=== PATIENT | female | born 1995 | race Caucasian/White ===

== ENCOUNTER 2019-08-20 19:14 | Observation (INO) | payer OTHER, SELFPAY ==
[2019-08-20] VITALS (7 sets, daily range): BP systolic 97–121; BP diastolic 50–76; PULSE 73–110; RESP 16–18; TEMP 36.5–37.7; O2SAT 97–100; BMI 31.6; BMI 29.9
--- NOTE | 2019-08-20 19:32 | ED.RN ---
PT REPORTS THAT SHE WAS BUCKED OFF HER HORSE THIS EVENING. PT DENIES LOC. REPORTS WEARING A HELMET. C/O NECK TENDERNESS AND BITING LIP. PT WITH ABRASION TO LEFT SIDE OF LIP AND INTO THE CHEEK.
--- NOTE | 2019-08-20 19:35 | CT_ITS ---
STUDY: CT FACIAL BONES WITHOUT CONTRAST REASON FOR EXAM: Female, 23 years old. Follow-up of torsion injured left side of mouth RADIATION DOSAGE (If Supplied By Facility): CTDIvol = ( 29.38 ) mGy, DLP = ( 554.80 ) mGycm TECHNIQUE: The patient was scanned in a multi detector CT scanner. Sagittal and coronal images were reconstructed. Individualized dose optimization techniques were used for this CT. COMPARISON: None. FINDINGS: Soft tissue calcification along the mentum of the mandible. Normal orbital su and orbital contents. Normal nasal bones and anterior nasal spine. Normal facial bones. There is no demonstrated fracture. Normal visualized paranasal sinuses. CT/Sinus/Facial Bone IMPRESSION: No fracture Electronically Signed: Fredy Tay MD at 20:19 EDT , Service support ,
--- NOTE | 2019-08-20 19:50 | RAD_ITS ---
STUDY: X-RAY - CERVICAL SPINE REASON FOR EXAM: Female, 23 years old. Fell from a horse and injured neck TECHNIQUE: 4 view(s) of the cervical spine were obtained. COMPARISON: None FINDINGS: Normal anterior atlantoaxial articulation. Normal odontoid process. Normal cervical lordosis. Normal vertebral bodies and endplates. Normal disc space heights. Normal visualized intervertebral neuroforamina. The soft tissue structures are unremarkable. RAD/Cerv Spine 2 or 3 Views IMPRESSION: Normal x-ray examination of the visualized cervical spine. Electronically Signed: Fredy Tay MD at 20:25 EDT , Service support ,
[2019-08-20 20:33] LABS: Absolute Lymphocyte Count 1.29 X10^3/uL (0.83-4.51); Absolute Neutrophil Count 15.7 X10^3/uL (2.0-7.7); Basophil# 0.07 X10^3/uL; Basophil% 0.4 % (0-1); Eosinophil# 0.16 X10^3/uL; Eosinophils% 0.9 % (0-5); Hematocrit 42.3 % (37-47); Hemoglobin 14.5 g/dL (12.0-15.0); Lymphocyte # 1.29 X10^3/ul (4.0); Lymphocyte % 7.1 % (19-41); Mean Corp Hgb Conc 34.3 g/dL (32-36); Mean Corpuscular Hgb 30.4 pg (27.0-32.0); Mean Corpuscular Volume 88.7 fL (81-99); Mean Platelet Vol. 9.1 fl (6.2-12.0); Monocyte# 0.86 X10^3/uL; Monocyte% 4.7 % (0-10); NRBC Flagged by Analyzer 0 % (0-5); Neutrophil # 15.69 X10^3/uL (2.7-7.7); Platelet Count 328 K/mm3 (150-450); RBC Distribution Width CV 11.5 % (11.6-14.6); RBC Distribution Width SD 36.9 fl (35.1-43.9); Red Blood Count 4.77 M/mm3 (4.2-5.4); White Blood Count 18.2 K/mm3 (4.4-11.0)
[2019-08-20 20:42] LABS: Anion Gap 5 (5-15); BUN 17 mg/dL (7-18); BUN/Creat Ratio 21.1 RATIO (10-20); Chloride 110 mmol/L (98-107); EST Glomerular Filtration Rate 95 mL/min (>60); Est Glom Filt Rate - Afr Amer 115 mL/min (>60); Glucose 90 mg/dL (74-106); Potassium 3.9 mmol/L (3.5-5.1); Sodium Level 139 mmol/L (136-145)
--- NOTE | 2019-08-20 20:49 | ED.DCSUM_ITS ---
- ER Visit Summary Date of Service: 08/20/19 Chief Complaint: [Facial injury] History of Present Illness: The patient is a 23 F [presents to the emergency department with complaint of injury to her face after being thrown off of a horse this evening. Patient states that her horse try to jump and then started bucking and bucked her off. Patient was wearing a helmet but her face hit the ground. No loss of consciousness. She complains of some mild pain in her neck. Patient complains of a tear to the inner aspect of her lower lip. Denies any chest pain or abdominal pain. She denies any numbness or tingling in the extremities. Denies any weakness in extremities.] Physical Examination: [HEENT-PERRLA, EOMI. Cranial nerves II through XII grossly intact. TMs clear. Mucous membranes moist. No adenopathy. Patient has a superficial abrasion to the left corner of the mouth and cheek. On pulling back the lower lip it is noted that patient has a degloving type injury of the lip mucosa along the aspect of the anterior mandible and there is large amount of particulate dirt and debris. Patient has some mild tenderness over the anterior mandible. She has some mild tenderness diffusely about the cervical spine. No bony step-offs noted. Good range of motion. Cardiovascular-regular rate and rhythm without murmur or ectopy Lungs-clear to auscultation, chest wall stable without crepitus or subcu emphysema Abdomen-normoactive bowel sounds, soft, nontender, no rebound or rigidity, no peritoneal signs. Extremities-intact ?4, normal range of motion, normal pulses, atraumatic] Test Results: [CBC with differential showed a white blood cell count of 18.2, hemoglobin 14, hematocrit 42, placed 328. Chemistries unremarkable. CT of the facial bones showed no fractures. X-rays of the C-spine showed no fractures.] Emergency Department Course and Treatment: [She was given Ancef 1 g IV. Case was discussed with oral maxillofacial surgeon Dr. Brush who will see patient and take 2 OR irrigation and repair of the wound.] Treatment Plan: [Admit] Disposition: [Admit] Impression: [Contusion face Contaminated intraoral wound Cervical strain] This note was generated with [employer] software. It may contain incorrect words, spelling, and punctuation that were not noted in review of the chart prior to signing ED Disposition - Plan for ED Patient: Referrals: COURTNEY DUNCAN [Other]
--- NOTE | 2019-08-20 21:29 | ED.RN ---
REPORT TO CANDELARIA ALEMAN IN OR. PT SKIN P/W/D, RESP EVEN AND UNLABORED, PT A&O X 3, NO DISTRESS NOTED.
--- NOTE | 2019-08-20 21:53 | HP.PCM_ITS ---
History of Present Illness Date of Admission: 08/20/19 Chief Complaint: Fell off a horse The patient is a 23 year old F with no past medical history presents from the [facility] she fell during a horse riding class. She landed on her face and appears to have a degloving injury to her internal oral mucosa. She denies any loss of consciousness, fever, chills, chest pain, numbness or tingling in the extremities. She was seen in the ER with a elevated white count which is likely reactive to the trauma. Plan is to go to the OR with OMFS for repair. Past Medical History Allergies No Known Allergies Allergy (Verified 08/20/19 19:18) Home Medications: Ambulatory Orders Medication Instructions Recorded NK 12/09/17 Surgical History: no surgical history Smoking Status: Never smoker Alcohol: None Drugs: None - *Family History Maternal History Items: No pertinent history Paternal History Items: No pertinent history Review of Systems Constitutional: Denies: Chills, Fever, Weight Change HEENT: Reports: - - Trauma to her lower lip. Denies: Head Aches, Sinus Congestion, Sinus Drainage Cardiovascular: Denies: Chest Pain, Palpitations Respiratory: Denies: Cough, Shortness of breath at rest, Sputum production Gastrointestinal: Denies: Abdominal Pain, Nausea, Vomiting Genitourinary: Denies: Dysuria Musculoskeletal: Denies: Joint Pain, Joint Tenderness Skin: Denies: Rash, Wounds Neurological: Denies: Numbness, Tingling, Focal weakness Psychiatric: Denies: Anxiety, Depression Hematologic/ Lymphatic: Denies: Easy Bruising, Easy Bleeding VTE Information - Inpt Only VTE Present on Admission: No - Physical Exam General: Alert, Oriented x3, Cooperative, No apparent distress HEENT: PERRLA, EOMI, Normocephalic Oral: - - Degloving injury to the internal lower mucosa of her lower lip Neck: Supple, No JVD Lungs: Clear to auscultation, Normal air movement, No rhonchi, No wheeze, No rales Cardiovascular: Regular rate, Regular Rhythm, Normal S1, Normal S2, No murmurs Abdomen: Soft, Non Tender, Non-Distended, No Hepato-splenomegaly Extremities: No edema, Capillary Refill Less than 3 Seconds Skin: No rashes, No breakdown Neurological: Neuro grossly intact, Sensory exam intact to light touch and pain Psych/Mental Status: Normal Affect, Appropriate Vital Signs Temp Pulse Resp BP Pulse Ox 99.2 F H 85 16 121/74 H 99 08/20/19 21:14 08/20/19 21:14 08/20/19 21:14 08/20/19 21:14 08/20/19 21:14 Oxygen Delivery Method Room Air Weight: 190 lb 0.615 oz Body Mass Index (BMI) 31.6 Laboratory Tests Past 24 Hrs 08/20/19 08/20/19 08/20/19 20:15 20:15 20:15 WBC 18.2 H RBC 4.77 Hgb 14.5 Hct 42.3 MCV 88.7 MCH 30.4 MCHC 34.3 RDW Std Deviation 36.9 RDW Coeff of Ruddy 11.5 L Plt Count 328 MPV 9.1 Immature Gran % (Auto) 0.900 Neut % (Auto) 86.0 H Lymph % (Auto) 7.1 L [place] % (Auto) 4.7 Eos % (Auto) 0.9 Baso % (Auto) 0.4 Absolute Neuts (auto) 15.7 H Absolute Lymphs (auto) 1.29 Nucleated RBC % 0 Sodium 139 Potassium 3.9 Chloride 110 H Carbon Dioxide 24.0 Anion Gap 5 BUN 17 Creatinine 0.80 Estim Creat Clear Calc 100.10 Est GFR (MDRD) Af Amer 115 Est GFR (MDRD) Non-Af 95 BUN/Creatinine Ratio 21.1 H Glucose 90 Calcium 9.0 Serum , Qual Pending Assessment/Plan 1. Facial trauma with oral mucosal degloving injury to the lower lip -Pain meds per OMFS -She is n.p.o. currently and will have a soft diet after surgery -give a dose 600 mg IV clindamycin x1 prior to surgery -Plan will be for discharge home tomorrow DVT: Ambulation Code Visit OBSV E&M: 60012 Initial observation care L2
[2019-08-20 21:55] LABS: Internal QC Validated? YES +Cl - CLEAR BKGD; Pregnancy, Serum, hCG Quali. NEGATIVE Negative
[2019-08-20] MEDS: 0.9% Normal Saline 1,000 ML 100 ML IV ×2 (22:00→23:59)
[2019-08-20] MEDS: Bupivacaine Mpf 0.5% 30 ML VIAL (22:45)
--- NOTE | 2019-08-20 23:25 | OP.PCM_ITS ---
Problem List (1) Laceration of lip, complicated Status: Acute Report of Operation Date of Procedure: 08/20/19 Pre-Operative Diagnosis: Severe Lip laceration Post-Operative Diagnosis: Same. Mental Nerve injury left. Surgery/Procedure Performed:: Debridement exploration , nerve approximation and repair laceration. Description of Surgical Findings:: Avulsive type degloving injury lower lip chin and mandible with nerve transection left mental nerve. Type of Anesthesia:: General Specimen's removed: none Drains: none Estimated Blood Loss (mL): minimal Description of Procedure: Patient examined in ER. Very large degloving injury lower lip and mandible with partial anesthesia left chin. Patient taken to OR for exploration debridement and repair. After anesthesia induced and intubated the patient was prepped and draped in the usual fashion for oral surgical care. The facial wounds (abrasions) were debrided and irrigated. The oral side of things consisted of a very large extending from first molar on the left and carried around to the right side a complete degloving in both a subperiosteal as well as supra- periosteal fashion. It was also noted the left mental nerve was transected. After approximately 300 cc of irrigation and scrubbing the foreign bodies which consisted of gravel particles were removed as best as I could determine. The left mental nerve proximal and distal stumps were re-approximated with 6-0 chromic suture. The mentalis muscle was then re-approximated with 3-0 chromic suture. At this time the remaining laceration was closed with a combination of running and interupted suturing. At this time the oropharyngeal and hypo-pharyngeal areas suction free of all debri and liquids. The patient was awakened and extubated and taken to PACU in stable condition
[2019-08-21 01:54] VITALS: BP 115/56; PULSE 103; RESP 18; TEMP 37.9; O2SAT 94
[2019-08-21 03:54] VITALS: BP 115/60; PULSE 102; RESP 18; TEMP 37.7; O2SAT 95
[2019-08-21 06:21] LABS: Absolute Lymphocyte Count 1.62 X10^3/uL (0.83-4.51); Absolute Neutrophil Count 12.5 X10^3/uL (2.0-7.7); Basophil# 0.05 X10^3/uL; Basophil% 0.3 % (0-1); Eosinophil# 0.08 X10^3/uL; Eosinophils% 0.5 % (0-5); Hematocrit 37.4 % (37-47); Hemoglobin 12.5 g/dL (12.0-15.0); Lymphocyte # 1.62 X10^3/ul (4.0); Lymphocyte % 10.5 % (19-41); Mean Corp Hgb Conc 33.4 g/dL (32-36); Mean Corpuscular Hgb 29.6 pg (27.0-32.0); Mean Corpuscular Volume 88.6 fL (81-99); Mean Platelet Vol. 9.5 fl (6.2-12.0); Monocyte# 1.15 X10^3/uL; Monocyte% 7.4 % (0-10); NRBC Flagged by Analyzer 0 % (0-5); Neutrophil # 12.52 X10^3/uL (2.7-7.7); Neutrophil % 80.8 % (47-70); Platelet Count 284 K/mm3 (150-450); RBC Distribution Width CV 11.8 % (11.6-14.6); RBC Distribution Width SD 37.6 fl (35.1-43.9); Red Blood Count 4.22 M/mm3 (4.2-5.4); White Blood Count 15.5 K/mm3 (4.4-11.0)
[2019-08-21 06:45] LABS: Anion Gap 9 (5-15); BUN 10 mg/dL (7-18); BUN/Creat Ratio 15.1 RATIO (10-20); Calcium,Total 8.1 mg/dL (8.5-10.1); Chloride 113 mmol/L (98-107); Creatinine, Serum 0.66 mg/dL (0.55-1.02); EST Glomerular Filtration Rate 119 mL/min (>60); Est Glom Filt Rate - Afr Amer 144 mL/min (>60); Estimated Creatinine Clearance 121.33 ml/min; Glucose 90 mg/dL (74-106); Potassium 3.8 mmol/L (3.5-5.1); Sodium Level 143 mmol/L (136-145)
--- NOTE | 2019-08-21 06:56 | PCM.PROGNOTE ---
Patient Problems: Active and Suspected Problems Laceration of lip, complicated (Acute) Subjective: Clindamycin day #2 The patient is a 23-year-old female who is a student at the [employer] who fell from a horse on 08/20 and sustained an avulsive type degloving injury of the lower lip, chin and mandible with transection of the left mental nerve. X-ray of the C-spine and the face in the emergency department revealed no fractures or dislocations. She was taken to the OR by Dr. Brush who performed debridement, irrigation, nerve approximation and repair of the laceration. All events of the past 24 hours been reviewed. T-max was 100.2 ?F at 2 AM. She is mildly tachycardic with a heart rate of 102 currently. Blood pressures are hemodynamically stable. She is maintaining an appropriate pulse ox on room air. All lab was personally reviewed. White blood cell count today is 15.5 and the hemoglobin and platelets are within normal limits. BMP is unremarkable. Serum test was negative. She is prescribed Vicodin for pain control however has not required any Vicodin since admission. - Physical Exam Vital Signs Temp Pulse Resp BP Pulse Ox 99.8 F H 102 H 18 115/60 95 08/21/19 03:54 08/21/19 03:54 08/21/19 03:54 08/21/19 03:54 08/21/19 03:54 Oxygen Delivery Method Room Air Weight: 179 lb 10.828 oz Body Mass Index (BMI) 29.9 Intake and Output for Last 24 Hours 08/19/19 08/20/19 08/21/19 23:59 23:59 23:59 Intake Total 307.33 / 307.33 767.33 / 767.33 Balance 307.33 / 307.33 767.33 / 767.33 Laboratory Tests Past 24 Hrs 08/20/19 08/20/19 08/20/19 20:15 20:15 20:15 WBC 18.2 H RBC 4.77 Hgb 14.5 Hct 42.3 MCV 88.7 MCH 30.4 MCHC 34.3 RDW Std Deviation 36.9 RDW Coeff of Ruddy 11.5 L Plt Count 328 MPV 9.1 Immature Gran % (Auto) 0.900 Neut % (Auto) 86.0 H Lymph % (Auto) 7.1 L [place] % (Auto) 4.7 Eos % (Auto) 0.9 Baso % (Auto) 0.4 Absolute Neuts (auto) 15.7 H Absolute Lymphs (auto) 1.29 Nucleated RBC % 0 Sodium 139 Potassium 3.9 Chloride 110 H Carbon Dioxide 24.0 Anion Gap 5 BUN 17 Creatinine 0.80 Estim Creat Clear Calc 100.10 Est GFR (MDRD) Af Amer 115 Est GFR (MDRD) Non-Af 95 BUN/Creatinine Ratio 21.1 H Glucose 90 Calcium 9.0 Serum , Qual NEGATIVE 08/21/19 08/21/19 05:33 05:33 WBC 15.5 H RBC 4.22 Hgb 12.5 Hct 37.4 MCV 88.6 MCH 29.6 MCHC 33.4 RDW Std Deviation 37.6 RDW Coeff of Ruddy 11.8 Plt Count 284 MPV 9.5 Immature Gran % (Auto) 0.500 Neut % (Auto) 80.8 H Lymph % (Auto) 10.5 L [place] % (Auto) 7.4 Eos % (Auto) 0.5 Baso % (Auto) 0.3 Absolute Neuts (auto) 12.5 H Absolute Lymphs (auto) 1.62 Nucleated RBC % 0 Sodium 143 Potassium 3.8 Chloride 113 H Carbon Dioxide 21.0 Anion Gap 9 BUN 10 Creatinine 0.66 Estim Creat Clear Calc 121.33 Est GFR (MDRD) Af Amer 144 Est GFR (MDRD) Non-Af 119 BUN/Creatinine Ratio 15.1 Glucose 90 Calcium 8.1 L Serum , Qual Medical Necessity - Tobacco Use Smoking Status: Never smoker Assessment/Plan All Active Problems Laceration of lip, complicated (Acute)
[2019-08-21 10:10] VITALS: BP 115/75; PULSE 82; RESP 18; TEMP 37.3; O2SAT 99
[2019-08-21] MEDS: 0.9% Normal Saline 1,000 ML 100 ML IV (10:18)
--- NOTE | 2019-08-21 18:17 | DCINST_ITS ---
- Discharge Diagnoses Current Active Problems: Current Active and Chronic Problems Laceration of lip, complicated (Acute) Transection of the L mental nerve You will use the following diet at home:: Other - I would stick to very soft food until your mouth heals up some. Start with liquids, puddings, jello, ice cream, mashed potatoes and broth and then you can progress as tolerated. Avoid very hot foods and very cold foods initiall because they may make the pain worse. Your food should be the consistency of: Soft (bite-sized & easy to chew/swallow) Your liquids should be the consistency of: Regular/Thin Discharge Activity: May not drive while taking narcotic pain medications. Call your doctor if you observe: Fever of 101 or Higher, Inability to have a bowel movement, Shortness of breath, Dizziness, Chest pain, Uncontrolled pain, - - drooling, inability to swallow your saliva, increased trouble swallowing Call your PCP if severe diarrhea ( > 5 stools a day), painful sores in the mouth, painful swallowing, rash or itching. Taking a probiotic such as Lactobacillus or Kefir can help with loose stools while taking antibiotics. Cleanse incision/area with: Soap & Water Additional Instructions: Ice your chin for 15 minutes every few hours while awake to help with pain control and also to decrease the swelling. Follow up wioth Dr. Brush in the office next week......call the office on Saturday for an appt. Follow up with the count includes the [facility] service on Saturday to check the surgical site. Eat yogurt or eat Kefir daily......it helps to prevent diarrhea and helps also to prevent vaginal yeast infections. You are being discharged on an antibiotic. There was a lot of gravel and dirt in the wound and the mouth has a lot of bacteria in it and we do not want you to get a bad infection so make sure to take ALL of the Clindamycin suspension. If you are taking control pills then you will need to use an alternate method of control for the nex t month because antibiotics can make the pill ineffective. Condoms would be best. Allergies/Adverse Reactions: Allergies No Known Allergies Allergy (Verified 08/20/19 19:18) Medications to take at Discharge Clindamycin Palm Suspension [Cleocin Suspension] 600 mg PO Q8H #720 ml 08/21/19 Ibuprofen Liquid [Motrin Liquid] 600 mg PO Q8H PRN PRN #126 ml 08/21/19 Oxycodone [Oxyfast] 5 mg PO Q4H PRN PRN 7 Days #25 ml 08/21/19 The following prescriptions were given: Clindamycin Palm Suspension [Cleocin Suspension] 600 mg PO Q8H #720 ml Transmission Status: Pending to [facility] Ibuprofen Liquid [Motrin Liquid] 600 mg PO Q8H PRN PRN #126 ml PRN Reason: Pain Score 1-10/10 Transmission Status: Pending to [facility] Oxycodone [Oxyfast] 5 mg PO Q4H PRN PRN 7 Days #25 ml PRN Reason: PAIN >5 Prescription Printed Primary Care Physician: COURTNEY DUNCAN [Other] Please follow up with your Primary Care Physician in: Saturday or the [facility] Test Results: Test results from this visit will be discussed in further detail at your follow- up appointment, if applicable. Please Follow Up With: Gold Brush DDS When: call the office Saturday for an appt. Proposed Discharge Date: 08/21/19
--- NOTE | 2019-08-21 18:28 | DS.PCM_ITS ---
Discharge Date and Diagnosis - Problem List Patient Problems: Active and Suspected Problems Laceration of lip, complicated (Acute) Date of Admission: 08/20/19 Date of Discharge: 08/21/19 - Primary Discharge Diagnosis Active and Suspected Problems Traumatic Laceration of lip, complicated (Acute) S/P debridement/exploration, nerve approximation and repair of laceration by Dr. Brush Mental nerve transection - Secondary Discharge Diagnosis none Hospital Course and Treatment Imaging Results: Clinical Impression(s) from Imaging Studies Facial/Sinus 08/20/19 19:35 IMPRESSION: No fracture Electronically Signed: Fredy Tay MD at 20:19 EDT , Service support , Cervical Spine X-Ray 08/20/19 19:50 IMPRESSION: Normal x-ray examination of the visualized cervical spine. Electronically Signed: Fredy Tay MD at 20:25 EDT , Service support , Laboratory Tests 08/21/19 08/21/19 08/20/19 Range/Units 05:33 05:33 20:15 WBC 15.5 H (4.4-11.0) K/mm3 RBC 4.22 (4.2-5.4) M/mm3 Hgb 12.5 (12.0-15.0) g/dL Hct 37.4 (37-47) % MCV 88.6 (81-99) fL MCH 29.6 (27.0-32.0) pg MCHC 33.4 (32-36) g/dL RDW Std Deviation 37.6 (35.1-43.9) fl RDW Coeff of Ruddy 11.8 (11.6-14.6) % Plt Count 284 (150-450) K/mm3 MPV 9.5 (6.2-12.0) fl Immature Gran % (Auto) 0.500 (0.0-0.9) % Neut % (Auto) 80.8 H (47-70) % Lymph % (Auto) 10.5 L (19-41) % Storey % (Auto) 7.4 (0-10) % Eos % (Auto) 0.5 (0-5) % Baso % (Auto) 0.3 (0-1) % Absolute Neuts (auto) 12.5 H (2.0-7.7) X10^3/uL Absolute Lymphs (auto) 1.62 (0.83-4.51) X10^3/uL Nucleated RBC % 0 (0-5) % Sodium 143 (136-145) mmol/L Potassium 3.8 (3.5-5.1) mmol/L Chloride 113 H (98-107) mmol/L Carbon Dioxide 21.0 (21.0-32.0) mmol/L Anion Gap 9 (5-15) BUN 10 (7-18) mg/dL Creatinine 0.66 (0.55-1.02) mg/dL Estim Creat Clear Calc 121.33 ml/min Est GFR (MDRD) Af Amer 144 (>60) mL/min Est GFR (MDRD) Non-Af 119 (>60) mL/min BUN/Creatinine Ratio 15.1 (10-20) RATIO Glucose 90 (74-106) mg/dL Calcium 8.1 L (8.5-10.1) mg/dL Serum , Qual NEGATIVE Negative 08/20/19 08/20/19 Range/Units 20:15 20:15 WBC 18.2 H (4.4-11.0) K/mm3 RBC 4.77 (4.2-5.4) M/mm3 Hgb 14.5 (12.0-15.0) g/dL Hct 42.3 (37-47) % MCV 88.7 (81-99) fL MCH 30.4 (27.0-32.0) pg MCHC 34.3 (32-36) g/dL RDW Std Deviation 36.9 (35.1-43.9) fl RDW Coeff of Ruddy 11.5 L (11.6-14.6) % Plt Count 328 (150-450) K/mm3 MPV 9.1 (6.2-12.0) fl Immature Gran % (Auto) 0.900 (0.0-0.9) % Neut % (Auto) 86.0 H (47-70) % Lymph % (Auto) 7.1 L (19-41) % Storey % (Auto) 4.7 (0-10) % Eos % (Auto) 0.9 (0-5) % Baso % (Auto) 0.4 (0-1) % Absolute Neuts (auto) 15.7 H (2.0-7.7) X10^3/uL Absolute Lymphs (auto) 1.29 (0.83-4.51) X10^3/uL Nucleated RBC % 0 (0-5) % Sodium 139 (136-145) mmol/L Potassium 3.9 (3.5-5.1) mmol/L Chloride 110 H (98-107) mmol/L Carbon Dioxide 24.0 (21.0-32.0) mmol/L Anion Gap 5 (5-15) BUN 17 (7-18) mg/dL Creatinine 0.80 (0.55-1.02) mg/dL Estim Creat Clear Calc 100.10 ml/min Est GFR (MDRD) Af Amer 115 (>60) mL/min Est GFR (MDRD) Non-Af 95 (>60) mL/min BUN/Creatinine Ratio 21.1 H (10-20) RATIO Glucose 90 (74-106) mg/dL Calcium 9.0 (8.5-10.1) mg/dL Serum , Qual Negative Dr. Gold Brush DDS -oral maxillofacial surgery Operations: - - Treatment/exploration of complicated lip laceration with nerve approximation of the left mental nerve and repair of laceration 08/20/2019 Procedures: None Summary of Care Provided: Kathi Cruz is a 23-year-old female who is a student at the [employer]. She has no chronic medical conditions. She fell from a horse on and sustained an avulsive type degloving injury of the lower lip, chin and mandible with transection of the left mental nerve. X-ray of the C-spine and the face in the emergency department revealed no fractures or dislocations. She was taken to the OR by Dr. Brush who performed debridement, irrigation, nerve approximation and repair of the laceration. She was treated with Clindamycin 600 mg IV while in the hospital and was given IV fluids and pain medication. On 08/21/2019 her temperature ranged from 99.2 to 100.2 ?F. She had no shortness of breath and was able to swallow liquids and soft foods without dysphagia. Auscultation of her lungs revealed them to be clear to auscultation with good air exchange. Pulse ox on room air ranged from 95 to 100% on the date of discharge. Heart had a regular rate and rhythm with no murmur. She has difficulty opening her mouth completely due to pain. The posterior pharynx was visualized and there was an adequate airway. She was discharged on 08/21/2019 with prescriptions for clindamycin suspension 600 mg p.o. every 8 hours to complete 7 days of treatment, Motrin suspension 600 mg p.o. every 8 hours as needed pain and a prescription for Oxycodone 5 mg, #25, 1 PO Q 4 H as needed for pain > 5. She will follow-up with Dr. Brush in the office next week. She was instructed to follow-up with the health clinic at the [facility] Saturday, sooner if she is having difficulty. She is to rinse her mouth with warm salt water several times a day. She was instructed to ice her chin and jaw for 15 minutes every few hours while awake. She will go to the health clinic at the [facility] or return to the emergency room should she have shortness of breath, difficulty swallowing, drooling. This note was generated with [employer] dictation software. It may contain incorrect words, spelling, and punctuation that were not noted in checking the note before signing. Patient Problems: Active and Suspected Problems Laceration of lip, complicated (Acute) - Physical Exam Vital Signs Temp Pulse Resp BP Pulse Ox 99.2 F H 82 18 115/75 99 08/21/19 10:10 08/21/19 10:10 08/21/19 10:10 08/21/19 10:10 08/21/19 10:10 Oxygen Delivery Method Room Air Weight: 179 lb 10.828 oz Body Mass Index (BMI) 29.9 Intake and Output for Last 24 Hours 08/19/19 08/20/19 08/21/19 23:59 23:59 23:59 Intake Total 307.33 / 307.33 2251.13 / 2251.13 Balance 307.33 / 307.33 2251.13 / 2251.13 Laboratory Tests Past 24 Hrs 08/20/19 08/20/19 08/20/19 20:15 20:15 20:15 WBC 18.2 H RBC 4.77 Hgb 14.5 Hct 42.3 MCV 88.7 MCH 30.4 MCHC 34.3 RDW Std Deviation 36.9 RDW Coeff of Ruddy 11.5 L Plt Count 328 MPV 9.1 Immature Gran % (Auto) 0.900 Neut % (Auto) 86.0 H Lymph % (Auto) 7.1 L Storey % (Auto) 4.7 Eos % (Auto) 0.9 Baso % (Auto) 0.4 Absolute Neuts (auto) 15.7 H Absolute Lymphs (auto) 1.29 Nucleated RBC % 0 Sodium 139 Potassium 3.9 Chloride 110 H Carbon Dioxide 24.0 Anion Gap 5 BUN 17 Creatinine 0.80 Estim Creat Clear Calc 100.10 Est GFR (MDRD) Af Amer 115 Est GFR (MDRD) Non-Af 95 BUN/Creatinine Ratio 21.1 H Glucose 90 Calcium 9.0 Serum , Qual NEGATIVE 08/21/19 08/21/19 05:33 05:33 WBC 15.5 H RBC 4.22 Hgb 12.5 Hct 37.4 MCV 88.6 MCH 29.6 MCHC 33.4 RDW Std Deviation 37.6 RDW Coeff of Ruddy 11.8 Plt Count 284 MPV 9.5 Immature Gran % (Auto) 0.500 Neut % (Auto) 80.8 H Lymph % (Auto) 10.5 L Storey % (Auto) 7.4 Eos % (Auto) 0.5 Baso % (Auto) 0.3 Absolute Neuts (auto) 12.5 H Absolute Lymphs (auto) 1.62 Nucleated RBC % 0 Sodium 143 Potassium 3.8 Chloride 113 H Carbon Dioxide 21.0 Anion Gap 9 BUN 10 Creatinine 0.66 Estim Creat Clear Calc 121.33 Est GFR (MDRD) Af Amer 144 Est GFR (MDRD) Non-Af 119 BUN/Creatinine Ratio 15.1 Glucose 90 Calcium 8.1 L Serum , Qual Discharge Activity: May not drive while taking narcotic pain medications. Call your doctor if you observe: Fever of 101 or Higher, Inability to have a bowel movement, Shortness of breath, Dizziness, Chest pain, Uncontrolled pain, - - drooling, inability to swallow your saliva, increased trouble swallowing Call your PCP if severe diarrhea ( > 5 stools a day), painful sores in the mouth, painful swallowing, rash or itching. Taking a probiotic such as Lactobacillus or Kefir can help with loose stools while taking antibiotics. Cleanse incision/area with: Soap & Water Home Medications: Medications to take at Discharge Clindamycin Palm Suspension [Cleocin Suspension] 600 mg PO Q8H #720 ml 08/21/19 Ibuprofen Liquid [Motrin Liquid] 600 mg PO Q8H PRN PRN #126 ml 08/21/19 Oxycodone [Oxyfast] 5 mg PO Q4H PRN PRN 7 Days #25 ml 08/21/19 Following Prescrptions Were Given to Patient: Clindamycin Palm Suspension [Cleocin Suspension] 600 mg PO Q8H #720 ml Transmission Status: Pending to [facility] Ibuprofen Liquid [Motrin Liquid] 600 mg PO Q8H PRN PRN #126 ml PRN Reason: Pain Score 1-10/10 Transmission Status: Pending to [facility] Oxycodone [Oxyfast] 5 mg PO Q4H PRN PRN 7 Days #25 ml PRN Reason: PAIN >5 Prescription Printed Primary Care Physician: COURTNEY DUNCAN [Other] Please follow up with your Primary Care Physician in: Saturday or the [facility] Please Follow Up With: Gold Brush DDS When: call the office Saturday for an appt. Disposition: Home Minutes spent on discharge:: 30 Patient Condition:: Stable Medical Necessity - Tobacco Use Smoking Status: Never smoker Tobacco Use: Non-smoker Meaningful Use Info Meaningful Use Diagnoses (Choose all that apply): None applicable Code Visit OBSV E&M: 16058 Observation care discharge
== END 2019-08-21 19:05 | disposition home or self-care (01) ==
LOC: ED 22:36 → SDC 22:36 → MS3 23:01
PROVIDERS: Anesthesiology; Dentist Oral and Maxillofacial Surgery; Admitting Provider Family Medicine; Emergency Provider Emergency Medicine; Referring Provider Family Medicine; Visit Provider Internal Medicine
PROC: (CPT 13132; principal; 2019-08-20 21:00)
DX: S01.521A Laceration with foreign body of lip, initial encounter (principal); S04.32XA Injury of trigeminal nerve, left side, initial encounter; V80.919A Animal-rider injured in unspecified transport accident, initial encounter; Y93.52 Activity, horseback riding; Y92.9 Unspecified place or not applicable; S16.1XXA Strain of muscle, fascia and tendon at neck level, initial encounter
CPT/HCPCS: 00300; 13132; 64864; 36415; 70486; 72040; 80048; 84703; 85025; 96361; 96365; 96366; 96367; 97802; 99218; 99285; J7030; A4216; G0378; J3490

== ENCOUNTER → 2020-02-03 09:19 | Outpatient (CLI) | payer OTHER, SELFPAY ==
[2020-02-03 09:04] VITALS: BMI 31.6
[2020-02-03 12:36] LABS: Cholesterol 155 mg/dL (200); High Density Lipoprotein 60 mg/dL; Triglycerides 62 mg/dL; Very Low Density Lipoprotein 12 mg/dL (5-40)
== END ==
PROVIDERS: PCP Internal Medicine; Referring Provider Internal Medicine; Visit Provider Internal Medicine
DX: Z00.00 Encounter for general adult medical examination without abnormal findings (principal)
CPT/HCPCS: 36415; 80061